=== PATIENT | female | born 1975 | race American Indian/Alaskan Native ===

== ENCOUNTER 2017-06-18 08:53 | Day surgery (SDC) | payer MEDICARE ==
[2017-06-17 10:00] LABS: Hematocrit 36.6 % (30.3-42.9); Hemoglobin 11.4 gm/dl (10.1-14.3); Mean Corpuscular HGB Conc 31 % (30-34); Mean Corpuscular Volume 75 fl (79-97); Platelet Count 394 K/mm3 (140-440); Red Blood Count 4.85 M/mm3 (3.65-5.03)
[2017-06-17 10:02] LABS: Mean Corpuscular Hemoglobin 24 pg (28-32)
--- NOTE | 2017-06-17 10:16 | Anesthesia Consultation ---
Anesthesia Consult and Med Hx - Airway Anesthetic Teeth Evaluation: Good ROM Head & Neck: Adequate Mental/Hyoid Distance: Adequate Mallampati Class: Class II Intubation Access Assessment: Probably Good - Pulmonary Exam CTA: Yes - Cardiac Exam Cardiac Exam: RRR - Pre-Operative Health Status ASA Pre-Surgery Classification: ASA2 Proposed Anesthetic Plan: General - Cardiovascular System Hx Hypertension: Yes (x 6 years) - Central Nervous System Hx Back Pain: Yes (spinal fibrosis) - Gastrointestinal Hx Ulcer: Yes Hx Gastroesophageal Reflux Disease: Yes - Hematic Hx Anemia: Yes - Other Systems Hx Substance Use: Yes (marijuana "few times a week")
[2017-06-17 10:21] LABS: BUN/Creatinine Ratio 16; Blood Urea Nitrogen 8 mg/dL (7-17); Hemolysis Index 9
[2017-06-17 10:48] LABS: Anisocytosis 1+; Hypochromasia 1+; Ovalocytes 1+; Poikilocytosis 1+; Stomatocytes Few; Tear Drop Cells Rare; Total Cells Counted 100
--- NOTE | 2017-06-18 07:39 | Short Stay Summary ---
Short Stay Documentation Date of service: 06/18/17 Narrative H&P: 42y/o with a history of dysfunctional uterine bleeding. The patient had an ultrasound that has demonstrated 3 small myomas with the largest being approximately 2 cm. The patient has attempted medical management without significant improvement in her symptoms. She is elected to undergo surgical management. The patient is scheduled for a Myosure and NovaSure. - History Principal diagnosis: dysfunctional uterine bleeding and uterine fibroids Past Medical History: hypertension Past Surgical History: , Other (tubal ligation) Social history: single - Allergies and Medications Current Medications: Allergies No Known Allergies Allergy (Unverified 06/16/17 16:42) Home Medications Medication Instructions Recorded Confirmed Last Taken Type Ferrous Sulfate 325 mg PO DAILY 01/05/16 06/16/17 Unknown History Lisinopril/Hydrochlorothiazide 1 tab PO DAILY 01/05/16 06/16/17 Unknown History [Lisinopril-Hctz 20-25 mg Tab] Mycophenolate [Cellcept] 500 mg PO BID 01/05/16 06/16/17 Unknown History Active Medications Famotidine (Pepcid) 20 mg PO PREOP NR Stop: 06/18/17 23:59 Sodium Chloride (Nacl 0.9% 1000 Ml) 1,000 mls @ 42 mls/hr IV DIRECT GURVINDER Midazolam HCl (Versed) 2 mg IV PREOP NR Stop: 06/18/17 23:59 - Physical exam General appearance: no acute distress Integumentary: no rash HEENT: Atraumatic Lungs: Clear to auscultation Breasts: deferred Heart: Regular rate Gastrointestinal: normal Female Genitourinary: deferred Rectal Exam: deferred - Brief post op/procedure progress note Date of procedure: 06/18/17 Pre-op diagnosis: dysfunctional uterine bleeding Procedure: Hysteroscopy Endometrial ablation via NovaSure Anesthesia: GETA Surgeon: EARL HUFFMAN Estimated blood loss: none Pathology: none Condition: stable - Hospital course Hospital course: The patient Was Admitted the Day of Surgery and Underwent a Hysteroscopy and NovaSure. Please See Operative Note for Details of Surgery. A Postoperative Course Is Uncomplicated. - Disposition Condition at discharge: Good Disposition: DC-01 TO HOME OR SELFCARE Short Stay Discharge Plan Activity: other (pelvic rest for 1 week) Diet: regular Additional Instructions: Follow-up with Dr. Cross in 2-4 weeks Prescriptions: Ibuprofen [Motrin] 800 mg PO Q8HR PRN #60 tablet PRN Reason: Pain oxyCODONE /ACETAMINOPHEN [Percocet 5/325] 1 tab PO Q6HR PRN #30 tablet PRN Reason: Pain
[~2017-06-18 08:53] MED LIST: NACL 0.9% 1000 ML 1,000 ML IV SCH; PEPCID PO NR; VERSED IV NR
[2017-06-18] MEDS ORDERED: DIPRIVAN 10 MG/ML IV ONE (11:18)
[2017-06-18] MEDS ORDERED: DILAUDID ONE (11:19)
[2017-06-18] MEDS ORDERED: XYLOCAINE MPF 2% ONE (11:22)
--- NOTE | 2017-06-18 11:31 | Anesthesia Day of Surgery ---
Anesthesia Day of Surgery - Day of Surgery Patient Examined: Yes Patient H&P Reviewed: Yes Patient is NPO: Yes
[2017-06-18] MEDS ORDERED: SILVER NITRATE TP ONE (11:45)
[2017-06-18] MEDS ORDERED: NACL 0.9% IR ONE (12:30)
[2017-06-18] MEDS ORDERED: ZOFRAN ONE (12:37)
--- NOTE | 2017-06-18 13:03 | Operative Report ---
Operative Report Operative Report: Date of procedure: 06/18/2017 Pre-operative diagnosis: Dysfunctional uterine bleeding Post-operative diagnosis: Same as above Procedure name(s): Hysteroscopy; endometrial ablation via NovaSure Surgeon: Latricia Flood M.D. Binder Technician: None Anesthesia: Gen. endotracheal anesthesia Findings thickened endometrial lining no evidence of a submucosal myoma Indication: 42-year-old 003 with a history of dysfunctional uterine bleeding and a history of small uterine leiomyomas. The patient elected to undergo surgical management. Procedure The patient was taken to the operating room and given general tracheal anesthesia without complication. The patient was prepped and draped in a normal sterile fashion. A bivalve speculum was placed in the patient's vagina single-tooth tenaculums placed on the anterior lip of the cervix. The cervical os was dilated with graduated dilators. A uterine sound was inserted. The hysteroscope was then placed. Insufflation of the uterine cavity was performed with normal saline. Gen. survey of the uterine cavity revealed thickened endometrium. The hysteroscope was then removed. The NovaSure device was then inserted. The endometrial length was of 5.5 cm and the uterine width was 4.2 cm. The device was engaged and it passed the surveillance of the uterine cavity. The NovaSure device was then deployed with a energy of 127 W that lasted for 1 minute 35 seconds. The NovaSure device was then removed. The hysteroscope was again reinserted. There was evidence of charring of the endometrial surface. The remainder of the vaginal instruments were then removed atraumatically. The patient was then successfully extubated taken to the recovery room. All sponge laps and needle counts were correct 2.
[2017-06-18 14:09] VITALS: BP 122/69
== END 2017-06-18 12:15 | disposition home or self-care (01) ==
LOC: OR 08:53
PROVIDERS: ATTEND Obstetrics & Gynecology
DX: D25.9 Leiomyoma of uterus, unspecified (principal); I10 Essential (primary) hypertension; K21.9 Gastro-esophageal reflux disease without esophagitis; Z98.890 Other specified postprocedural states; Z98.51 Tubal ligation status
CPT/HCPCS: 36415; 58563; 80048; 84703; 85007; 85025; A4217; J1170; J2250; J2405; J2704; J7030